=== PATIENT | female | born 1950 | race Asian ===

== ENCOUNTER 2018-10-01 02:02 | Emergency (ER) | payer BC, MEDICARE ==
[~2018-10-01] VITALS: Ht 157.5 cm; Wt 84.1 kg
[2018-10-01 02:14] LABS: GLUCOSE,POINT OF CARE 106 MG/DL (70-110)
[2018-10-01] MEDS ORDERED: INSNOV SQ (02:18)
[2018-10-01] MEDS ORDERED: INSLAN SQ (02:18)
[2018-10-01] MEDS ORDERED: VITAD1000 PO (02:19)
[2018-10-01] MEDS ORDERED: SIMV-260 PO (02:19)
[2018-10-01] MEDS ORDERED: LINA290C PO (02:19)
[2018-10-01] MEDS ORDERED: DILT240C94 PO (02:19)
[2018-10-01] MEDS ORDERED: LOSA50TA64 PO (02:19)
[2018-10-01] MEDS ORDERED: ASPIRIN 325 MG TABLET PO ONE (02:45)
[2018-10-01] MEDS ORDERED: FUROSEMIDE 40 MG/4 ML VIAL IVP ONE (02:45)
[2018-10-01 02:52] LABS: BASOPHILS % (AUTO) 0.4 % (0.0-2.0); EOSINOPHILS % (AUTO) 4.6 % (1.0-6.0); HEMATOCRIT 40.4 % (36-46); HEMOGLOBIN 13.3 g/dL (12.0-16.0); LYMPHOCYTES # (AUTO) 1.2 K/uL (1.0-4.8); LYMPHOCYTES % (AUTO) 24.9 % (22.0-44.0); MEAN CORPUSCULAR HEMOGLOBIN 28.7 pg (26.0-34.0); MEAN CORPUSCULAR HGB CONC 32.9 G/dL (31.0-37.0); MEAN CORPUSCULAR VOLUME 87 fL (80-100); MONOCYTES # (AUTO) 0.5 K/uL (0.1-1.0); NEUTROPHILS % (AUTO) 60.1 % (40.0-70.0); PLATELET COUNT (AUTO) 175 K/uL (150-450); RED BLOOD CELL COUNT(AUTO) 4.63 MIL/uL (4.00-5.20); RED CELL DISTRIBUTION WIDTH 15.2 % (11.5-14.5)
[2018-10-01 03:10] LABS: ANION GAP 7 mmol/L (8-16); CALCIUM, TOTAL 9.3 mg/dL (8.8-10.5); CARBON DIOXIDE 29 mmol/L (22-29); CHLORIDE 103 mmol/L (98-107); CREATININE 0.84 mg/dL (0.60-1.30); GLOMERULAR FILTR. RATE CALC > 60 mL/min (>60); GLUCOSE,RANDOM 118 mg/dL (70-110); POTASSIUM 4.1 mmol/L (3.5-5.1); SODIUM SERUM 139 mmol/L (136-145); UREA NITROGEN, BLOOD 13 mg/dL (7-18)
[2018-10-01 03:16] LABS: ALANINE AMINOTRANSFERASE 34 U/L (12-78); ALBUMIN 3.6 g/dL (3.4-5.0); ALKALINE PHOSPHATASE 117 U/L (46-116); ASPARTATE AMINOTRANSFERASE 23 U/L (15-37); BILIRUBIN,TOTAL 0.4 mg/dL (0.1-1.0); TOTAL PROTEIN, SERUM 7.5 g/dL (6.4-8.2)
[2018-10-01 03:17] LABS: B-TYPE NATRIURETIC PEPTIDE 31 pg/mL (0-100)
[2018-10-01] MEDS ORDERED: NITROGLYCERIN 2% (1 GM=INCH) PACKET TP ONE (03:45)
[2018-10-01 06:37] VITALS: BP 120/64
[2018-10-01 08:44] LABS: GLUCOSE,POINT OF CARE 120 MG/DL (70-110)
== END 2018-10-01 08:56 | disposition short-term general hospital (02) ==
LOC: EMS 02:03
DX: R06.02 Shortness of breath (principal); R07.89 Other chest pain; E11.9 Type 2 diabetes mellitus without complications; E78.00 Pure hypercholesterolemia, unspecified; Z79.899 Other long term (current) drug therapy; Z90.710 Acquired absence of both cervix and uterus
CPT/HCPCS: 36415; 71045; 80053; 82962; 83880; 84484; 85025; 93005; 96374; 99285; J1940